=== PATIENT | female | born 2000 | race Caucasian/White ===

== ENCOUNTER → 2021-11-29 11:53 | Outpatient (CLI) | payer OTHER, BC, SELFPAY ==
[2021-11-29 13:55] LABS: COVID19 -Nasal RAPID Negative (Negative)
== END ==
PROVIDERS: Visit Provider Surgery
DX: Z20.822 Contact with and (suspected) exposure to COVID-19 (principal); Z01.812 Encounter for preprocedural laboratory examination
CPT/HCPCS: 87635; C9803

== ENCOUNTER 2021-11-30 12:30 | Day surgery (SDC) | payer OTHER, BC, SELFPAY ==
--- NOTE | 2021-11-30 | PATH_ITS ---
[facility] Accession Number: [id number] No. of containers.. Tissue . 01 Material submitted: . PART A: duodenum - DUODENUM BIOPSY PART B: stomach - ANTRUM BIOPSY PART C: stomach - STOMACH FUNDUS BIOPSY PART D: ileum - TI BIOPSY PART E: cecum - CECUM BIOPSY PART F: colon - TRANSVERSE COLON BIOPSY PART G: colon - DESCENDING COLON BIOPSY PART H: sigmoid colon - SIGMOID COLON BIOPSY PART I: rectum - RECTUM BIOPSY . 01 Diagnosis: A. Duodenum, Biopsy: Duodenal mucosa with no diagnostic abnormality. Negative for active inflammation, features of sprue, dysplasia, or malignancy. . B. Stomach, Antrum, Biopsy: Antral mucosa with mild chronic gastritis. Negative for Helicobacter by immunohistochemistry. Negative for intestinal metaplasia. Negative for dysplasia and malignancy. . C. Stomach, Fundus, Biopsy: Body-type mucosa with mild chronic gastritis. Negative for Helicobacter by immunohistochemistry. Negative for intestinal metaplasia. Negative for dysplasia and malignancy. . D. Terminal Ileum, Biopsy: Small bowel mucosa with no diagnostic abnormality. Negative for active inflammation, dysplasia, and malignancy. . E-I: Cecum, Transverse Colon, Descending Colon, Sigmoid Colon, Rectum, Biopsies: Colonic mucosa with no diagnostic abnormality. Negative for active, chronic, and microscopic colitis. Negative for dysplasia and malignancy. . [facility] 12/07/[address] [place] [address] . 01 Electronically signed: . Ximena Jara MD, Pathologist NPI- [id number] . 01 Gross description: . Part A: DUODENUM BIOPSY: Received in formalin are 3 fragment(s) of marti, soft tissue measuring 0.3 x 0.3 x 0.1 cm to 0.1 x 0.1 x 0.1 cm submitted entirely in 1 cassette(s) Part B: ANTRUM BIOPSY: Received in formalin are 4 fragment(s) of marti, soft tissue measuring 0.5 x 0.2 x 0.1 cm to 0.2 x 0.2 x 0.1 cm submitted entirely in 1 cassette(s) Part C: STOMACH FUNDUS BIOPSY: Received in formalin are 4 fragment(s) of marti, soft tissue measuring 0.3 x 0.1 x 0.1 cm to 0.2 x 0.1 x 0.1 cm submitted entirely in 1 cassette(s) Part D: TI BIOPSY: Received in formalin is 1 fragment(s) of marti, soft tissue measuring 0.3 x 0.3 x 0.1 cm submitted entirely in 1 cassette(s) Part E: CECUM BIOPSY: Received in formalin are 2 fragment(s) of marti, soft tissue measuring 0.5 x 0.1 x 0.1 cm to 0.3 x 0.1 x 0.1 cm submitted entirely in 1 cassette(s) Part F: TRANSVERSE COLON BIOPSY: Received in formalin are 2 fragment(s) of marti, soft tissue measuring 0.4 x 0.2 x 0.1 cm to 0.3 x 0.2 x 0.1 cm submitted entirely in 1 cassette(s) Part G: DESCENDING COLON BIOPSY: Received in formalin are 2 fragment(s) of marti, soft tissue measuring 0.3 x 0.3 x 0.1 cm to 0.2 x 0.1 x 0.1 cm submitted entirely in 1 cassette(s) Part H: SIGMOID COLON BIOPSY: Received in formalin are 3 fragment(s) of marti, soft tissue measuring 0.4 x 0.1 x 0.1 cm to 0.2 x 0.1 x 0.1 cm submitted entirely in 1 cassette(s) Part I: RECTUM BIOPSY: Received in formalin are 2 fragment(s) of marti, soft tissue measuring 0.3 x 0.3 x 0.1 cm to 0.3 x 0.1 x 0.1 cm submitted entirely in 1 cassette(s) /CPE 12/01/2021 0442 Local . 01 Microscopic: . B-C: Immunohistochemical stains were performed on blocks B and C in order to evaluate for Helicobacter organisms, and are both negative. The control stain showed appropriate reactivity. . * This test was developed and its performance characteristics determined by [employer]. It has not been cleared or approved by the U.[place]. Food and Drug Administration. The FDA has determined that such clearance or approval is not necessary. This test is used for clinical purposes. It should not be regarded as investigational or for research. . 01 Pathologist provided ICD-10: R10.9, R14.0 . 01 CPT . 679295, 995990, 436550, 778292, 892356, 116813, 605357, 428085, 970306, [id number] Specimen Comment: A courtesy copy of this report has been sent to [phone] Performed at: 01 [facility] [address] [place] [address] [id number] MD Amaury Peck MD Phone: [phone]
[2021-11-30 12:52] VITALS: BMI 21.7
[2021-11-30 13:00] VITALS: BP 102/63; PULSE 80; RESP 14; TEMP 37.4; O2SAT 97
--- NOTE | 2021-11-30 13:17 | PM.PREOP ---
Pre-operative Note COVID-19 COVID-19 status: Negative Result date/Date tested (Pos, Neg/Pending): 11/29/21 Interval Note History & Physical reviewed/Exam performed by Physician: Yes Changes to H&P: No ASA Class (for procedural sedation): II
[2021-11-30] MEDS: LACTATED RINGERS 1,000 ML 42 ML IV (13:19)
--- NOTE | 2021-11-30 13:20 | PM.HP.1 ---
History of Present Illness History of Present Illness Date Patient Seen: 11/30/21 Time Patient Seen: 13:20 Chief complaint: SDC Narrative: Lex is here for her procedure today. No changes to her health since last month. See the office note from October for details. Patient History Medical History (Updated 10/24/21 @ 21:20 by Bonnie Knott) Acne (~2015) Asthma (~2001) Surgical History (Updated 10/24/21 @ 21:20 by Bonnie Knott) Anesthesia IUD (intrauterine device) in place (~2019) Family & Social History Family History (Updated 10/24/21 @ 21:21 by Bonnie Knott) Grandmother Cancer Diabetes mellitus Grandfather History of heart disease Social History: household members family Tobacco & Substance use: Smoking Status Never smoker alcohol intake current alcohol intake frequency a few times a week Substance Use Type does not use Meds Home Medications and Allergies Home Medications Medication Instructions Recorded Confirmed Type levonorgestrel 20 mcg/24 hours (7 intrauterine 10/11/21 10/23/21 History yrs) 52 mg intrauterine device (Mirena) albuterol 90 mcg/actuation aerosol 1 inhalation PRN PRN Adequate 11/30/21 History inhaler Ventilation Allergies Allergy/AdvReac Type Severity Reaction Status Date / Time No Known Drug Allergies Allergy Verified 11/30/21 12:48 Exam Vital Signs (past 8 hours): - 11/30/21 13:00 Temperature 99.3 F Pulse Rate 80 Respiratory Rate 14 Blood Pressure 102/63 Pulse Oximetry 97 Oxygen Delivery Method Room Air Oxygen Delivery Method Room Air Const General: healthy appearing Resp Effort & Inspection: normal respiratory effort Assessment & Plan Assessment and plan (1) Bilateral lower abdominal pain: Status: Acute Plan 21-year-old woman here for upper and lower endoscopy. We reviewed the risks and benefits and she would like to proceed. COVID-19 COVID-19 status: Negative Result date/Date tested (Pos, Neg/Pending): 11/29/21 Time Spent With Patient Critical Care time: I spent a total of [] minutes of critical care time on this patient's care today; this time is exclusive of procedural time.
[2021-11-30] MEDS: LIDOCAINE 4% SOLN 50 ML 20 ML TOP (13:25)
[2021-11-30] MEDS: ONDANSETRON 4 MG/2 ML INJ IV (13:25)
[2021-11-30] MEDS: fentaNYL 250 MCG/5 ML INJ 175 MCG IV (13:48)
[2021-11-30] MEDS: MIDAZOLAM 5 MG/5 ML VIAL 10 MG IV (13:48)
--- NOTE | 2021-11-30 14:02 | PM.OP.EC ---
Operative Date/Time/Diagnoses Date of procedure: 11/30/21 Time of procedure: 14:02 Pre-op diagnosis: Abdominal pain Post-op diagnosis: same Procedure & Clinicians Study performed: EGD and colonoscopy Same procedure as scheduled: Yes Surgeon: Fernie Black Procedure Notes Procedure in detail: Surgeon: Fernie Black MD Procedure in detail: A timeout was performed. A bite blocked was placed and monitors were attached to the patient. The patient was positioned in a left lateral decubitus position. Sedation was administered with Versed and fentanyl. Once the patient was sedated the endoscope was inserted through the bite block and passed through the esophagus and stomach and into the duodenum. The duodenal mucosa appeared normal. Random biopsies were taken from the duodenum. The scope was then withdrawn into the duodenal bulb which appeared normal and then withdrawn into the stomach and random biopsies taken from the antrum. There were no antral ulcers. The endoscope was retroflexed and rest of the stomach was inspected. There was no hiatal hernia. There was diffuse gastritis in the fundus with diffuse pin point bleeding. There was no tavo ulceration. Random biopsies were taken from the fundus. The endoscope was straightned and withdrawn into the esophagus. The esophagus was completely normal. Findings: Gastritis of the fundus Next we repositioned the patient for a colonoscopy. A digital rectal exam was performed and was normal. The colonoscope was inserted and advanced to the cecum. The appendiceal orifice was identified and photographed. The terminal ileum was intubated and appeared normal. Random biopsies were taken from the ileal mucosa. The scope was slowly withdrawn over greater than 6 minutes. Random biopsies were taken from the cecum, transverse colon, descending colon, sigmoid colon and rectum. There were no lesions found. The scope was retroflexed in the rectum and no abnormalities noted. Findings: Normal colon and terminal ileum EBL: 5 mL Scope withdrawal time: 8 Sedation minutes: 39 Post-procedure Recommendations: Will call with biopsy results Disposition: PACU
[2021-11-30 14:05] VITALS: BP 89/50; PULSE 66; RESP 10; TEMP 36.4; O2SAT 99
[2021-11-30 14:10] VITALS: BP 87/52; PULSE 62; RESP 12; O2SAT 99
[2021-11-30 14:15] VITALS: BP 94/56; PULSE 61; RESP 12; O2SAT 100
[2021-11-30 14:25] VITALS: BP 95/57; PULSE 61; RESP 17; TEMP 36.2; O2SAT 100
[2021-11-30 14:44] VITALS: BP 95/57; PULSE 61; RESP 16; TEMP 36.7; O2SAT 100
== END 2021-11-30 15:09 | disposition home or self-care (01) ==
PROVIDERS: Referring Provider Surgery; Visit Provider Surgery
PROC: 0DJ08ZZ Inspection of Upper Intestinal Tract, Via Natural or Artificial Opening Endoscopic (ICD-10-PCS; CPT 43235; principal; 2021-11-30 13:45)
PROC: 0DJD8ZZ Inspection of Lower Intestinal Tract, Via Natural or Artificial Opening Endoscopic (ICD-10-PCS; CPT 45378; 2021-11-30 13:45)
DX: R10.31 Right lower quadrant pain (principal); R10.32 Left lower quadrant pain; K29.50 Unspecified chronic gastritis without bleeding
CPT/HCPCS: 45380; 43239; 81025; 99152; 99153; J2250; J2405; J3010